=== PATIENT | female | born 1945 | race Caucasian/White ===

== ENCOUNTER 2020-01-09 19:10 | Inpatient (IN) | payer MEDICARE, SELFPAY ==
[2020-01-09] VITALS (7 sets, daily range): BP systolic 122–128; BP diastolic 61–66; PULSE 77–102; RESP 16–30; TEMP 36.9–39.2; O2SAT 91–99
--- NOTE | 2020-01-09 19:38 | DI.RAD.S_ITS ---
PROCEDURE: XR CHEST 1V INDICATIONS: suspected sepsis TECHNIQUE: One view of the chest was acquired. COMPARISON: None. FINDINGS: Surgical changes and devices: Surgical clips in the gallbladder fossa.. Lungs and pleura: Lungs demonstrate mildly coarse interstitial markings diffusely and questionable hazy patchy alveolar opacity in the right lateral lower lung. Possible small retrocardiac alveolar opacity. No dense consolidations. No pleural effusions or pneumothorax. Mediastinum: Mediastinal contours appear normal. Heart size is normal. Bones and chest wall: No suspicious bony lesions. Overlying soft tissues appear unremarkable. IMPRESSION: 1. Interstitial thickening with possible bibasilar alveolar opacities. A viral pneumonia, chronic lung disease, or early interstitial and pulmonary edema should be considered. Correlate clinically. Dictated by: Nicole Zamora M.D. on 01/09/2020 at 20:27 Approved by: Nicole Zamora M.D. on 01/09/2020 at 20:28
--- NOTE | 2020-01-09 19:41 | ED_ITS ---
HPI - General Adult General Chief complaint: Fever Stated complaint: SOB COUGH FEVER Time Seen by Provider: 01/09/20 19:33 Source: patient Mode of arrival: Wheelchair Limitations: no limitations History of Present Illness HPI narrative: Patient is a 74-year-old female. No diagnosed medical problems. States she takes no medications however does use quite a few supplements. 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 She states that she was at the [employer] buildings when several the employees there were diagnosed in tested positive for COVID-19. For the past several days has had cough and body aches. She also states that she has been feeling like she has had hard time catching her breath. No prior underlying lung issues. Also complaining of fevers and body aches. Related Data Home Medications Medication Instructions Recorded Confirmed No Known Home Medications 01/09/20 01/09/20 Allergies Allergy/AdvReac Type Severity Reaction Status Date / Time gabapentin Allergy Unknown Verified 01/09/20 19:25 Review of Systems Constitutional Constitutional: Reports body ache(s), Reports chills, Reports fatigue and Reports fever(s) Cardiovascular Cardiovascular: Denies chest pain and Reports dyspnea Respiratory Respiratory: Reports cough and Reports dyspnea Gastrointestinal Gastrointestinal: Denies abdominal pain, Denies nausea and Denies vomiting Musculoskeletal Musculoskeletal: Denies myalgias and Denies arthralgias Integumentary/Breasts Skin/Breast: Denies lesions and Denies rash Neurologic Neurologic: Denies behavioral changes Psychiatric Psychiatric: Denies behavioral changes Endocrine Endocrine: Reports fatigue Hematologic/Lymphatic Hematologic/Lymphatic: Denies easy bleeding and Denies easy bruising Allergic/Immunologic Allergic/Immunologic: Denies urticaria Patient History Medical History Diet-controlled diabetes mellitus (Acute) Surgical History Hx of cholecystectomy (Acute) Previous back surgery (Acute) Family History (Updated 01/10/20 @ 01:27 by MICHELLE Smith) Mother CVA (cerebral vascular accident) Father Chronic alcoholism Social History household members: none Smoking Status: Former smoker alcohol intake: former Smoking Status: Former smoker alcohol intake frequency: 0-2 drinks per day Substance Use Type: does not use Exam Initial Vital Signs Initial Vital Signs: Vital Signs Temperature 102.5 F H 01/09/20 19:22 Pulse Rate 97 H 01/09/20 19:22 Respiratory Rate 24 01/09/20 19:22 Blood Pressure 128/66 01/09/20 19:22 Pulse Oximetry 91 01/09/20 19:22 Const General: cooperative and comfortable Limitations: mental status not altered HENMT Head: normal to inspection and normocephalic Chest Chest: normal inspection of the chest Resp Effort & Inspection: cough and not labored Auscultation: clear to auscultation bilaterally Cardio Rhythm: regular rhythm Pulses: radial pulses present GI Inspection: non-distended Palpation: soft and No firm Skin Lesions: no lesions Rashes: no rashes Neuro General: alert, awake and oriented x3 Cognition: normal cognition Speech: speech normal Extrem General: capillary refill normal and No edema Psych Appearance: grossly normal and well kempt Scores GCS [place] coma scale eye opening: Spontaneous [place] coma scale verbal response: Orientated Greta coma scale motor response: Obey commands [place] coma scale total score: 15 Course Orders Ordered: ED Orders 01/09/20 19:32 Flu test [Influenza A & B (PCR)] Stat 01/09/20 19:38 XR chest 1V Stat EKG-12 Lead Stat RT Consult Eval and Treat Now 01/09/20 20:30 Blood Culture Stat 01/09/20 20:40 Complete Blood Count AUTO DIFF Stat Comprehensive Metabolic Panel Stat Lactate (Lactic Acid) Stat Lipase Stat NT-proBNP (BNP-Adult 18+) Stat Partial Thromboplastin Time Stat Procalcitonin Stat Prothrombin Time INR Stat 01/09/20 22:41 CT angio chest PE protocol Stat Acetaminophen (Tylenol) 650 mg PO Q4HR COUNTS INCLUDE 234 BEDS AT THE [facility] Last Admin: 01/10/20 02:17 Dose: 650 mg Documented by: AHARSTA Albuterol (Ventolin Hfa) 2 puff INH RTQ4HR PRN PRN Reason: Shortness Of Breath Albuterol/Ipratropium (Combivent Respimat) 2 puff INH RTBID GENESIS Enoxaparin Sodium (Lovenox) 40 mg SUBCUT DAILY COUNTS INCLUDE 234 BEDS AT THE [facility] Sodium Chloride (Normal Saline 0.9%) 1,000 mls @ 100 mls/hr IV CONT GENESIS Last Infusion: 01/10/20 01:40 Dose: 100 mls/hr Documented by: Admin: 01/10/20 00:53 Dose: 100 mls/hr Documented by: NORAH Melatonin (Melatonin) 3 mg PO BEDTIME PRN PRN Reason: Insomnia Last Admin: 01/10/20 02:53 Dose: 3 mg Documented by: SHANNAN Ondansetron HCl (Zofran) 4 mg IV Q8HR PRN PRN Reason: Nausea And Vomiting Discontinued Medications Acetaminophen (Tylenol) 975 mg PO NOW ONE Stop: 01/09/20 19:43 Last Admin: 01/09/20 20:15 Dose: 975 mg Documented by: [email or web address] Sodium Chloride (Normal Saline 0.9%) 1,000 mls @ 1,000 mls/hr IV BOLUS ONE Stop: 01/09/20 20:41 Last Infusion: 01/09/20 22:23 Dose: 0 mls/hr Documented by: [email or web address] Admin: 01/09/20 20:14 Dose: 1,000 mls/hr Documented by: CTR.SARA Vital Signs Vital signs: Vital Signs - 8 hr 01/09/20 19:50 01/09/20 21:30 01/09/20 21:50 Temperature 98.8 F Pulse Rate 102 H 81 77 Respiratory Rate 20 24 30 H Blood Pressure [Left Arm] 122/61 122/61 Pulse Oximetry 97 99 95 01/09/20 22:13 01/09/20 22:50 Temperature 98.4 F 98.4 F Pulse Rate 81 78 Respiratory Rate 24 16 Blood Pressure [Left Arm] 122/61 122/61 Pulse Oximetry 97 96 Medical Decision Making Lab Data Lab results reviewed: Yes I reviewed the patient's lab results. Result diagrams: 01/09/20 20:40 01/09/20 20:40 Labs: Lab Results 01/09/20 01/09/20 01/09/20 Range/Units 19:32 20:40 20:40 WBC 10.6 (4.5-11.0) X10^3/uL RBC 4.67 (4.0-5.2) X10^6/uL Hgb 14.3 (12.0-16.0) g/dL Hct 41.7 (36-46) % MCV 89.3 (80-100) fL MCH 30.6 (26-34) PG MCHC 34.3 (30-36) % RDW 13.2 (11.6-14.8) % Plt Count 214 (150-400) X10^3/uL Neut % (Auto) 74.0 (50-75) % Lymph % (Auto) 19.7 L (25-40) % [place] % (Auto) 6.1 (3-14) % Eos % (Auto) 0.0 L (2-4) % Baso % (Auto) 0.2 (0-2) % Neut # (Auto) 7800 H (2192-1113) /uL Lymph # (Auto) 2100 (3722-6922) /uL [place] # (Auto) 600 (0-900) /uL Eos # (Auto) 0 (0-450) /uL Baso # (Auto) 0 (0-100) /uL PT 14.9 H (10.1-12.7) SECONDS INR 1.3 (0.9-1.3) APTT 34 (26.4-36.2) SECONDS Sodium (137-145) mmol/L Potassium (3.4-5.1) mmol/L Chloride (98-107) mmol/L Carbon Dioxide (22-32) mmol/L BUN (7-17) mg/dL Creatinine (0.52-1.04) mg/dL Estimated GFR (>60) mL/min BUN/Creatinine Ratio (6-22) Glucose (80-110) mg/dL Lactate (0.7-2.1) mmol/L Calcium (8.4-10.2) mg/dL Total Bilirubin (0.2-1.3) mg/dL AST (14-36) IU/L ALT (<35) IU/L Alkaline Phosphatase (38-126) U/L NT-Pro-B Natriuret Pep (<450) pg/mL Total Protein (6.3-8.2) g/dL Albumin (3.5-5.0) g/dL Globulin (1.7-4.1) g/dL Albumin/Globulin Ratio (1.0-2.8) Lipase (23-300) U/L Procalcitonin (<0.5) ng/mL Influenza A (RT-PCR) Flu a negative (NEGATIVE) Influenza B (RT-PCR) Flu b negative (NEGATIVE) 01/09/20 01/09/20 01/09/20 Range/Units 20:40 20:40 20:40 WBC (4.5-11.0) X10^3/uL RBC (4.0-5.2) X10^6/uL Hgb (12.0-16.0) g/dL Hct (36-46) % MCV (80-100) fL MCH (26-34) PG MCHC (30-36) % RDW (11.6-14.8) % Plt Count (150-400) X10^3/uL Neut % (Auto) (50-75) % Lymph % (Auto) (25-40) % [place] % (Auto) (3-14) % Eos % (Auto) (2-4) % Baso % (Auto) (0-2) % Neut # (Auto) (7245-0245) /uL Lymph # (Auto) (5820-4679) /uL [place] # (Auto) (0-900) /uL Eos # (Auto) (0-450) /uL Baso # (Auto) (0-100) /uL PT (10.1-12.7) SECONDS INR (0.9-1.3) APTT (26.4-36.2) SECONDS Sodium 132 L (137-145) mmol/L Potassium 4.3 (3.4-5.1) mmol/L Chloride 101 (98-107) mmol/L Carbon Dioxide 23 (22-32) mmol/L BUN 14 (7-17) mg/dL Creatinine 0.73 (0.52-1.04) mg/dL Estimated GFR > 60.0 (>60) mL/min BUN/Creatinine Ratio 19.2 (6-22) Glucose 109 (80-110) mg/dL Lactate 1.1 (0.7-2.1) mmol/L Calcium 8.9 (8.4-10.2) mg/dL Total Bilirubin 0.6 (0.2-1.3) mg/dL AST 26 (14-36) IU/L ALT 17 (<35) IU/L Alkaline Phosphatase 86 (38-126) U/L NT-Pro-B Natriuret Pep (<450) pg/mL Total Protein 7.5 (6.3-8.2) g/dL Albumin 3.9 (3.5-5.0) g/dL Globulin 3.6 (1.7-4.1) g/dL Albumin/Globulin Ratio 1.1 (1.0-2.8) Lipase 101 (23-300) U/L Procalcitonin 0.11 (<0.5) ng/mL Influenza A (RT-PCR) (NEGATIVE) Influenza B (RT-PCR) (NEGATIVE) 01/09/20 Range/Units 20:40 WBC (4.5-11.0) X10^3/uL RBC (4.0-5.2) X10^6/uL Hgb (12.0-16.0) g/dL Hct (36-46) % MCV (80-100) fL MCH (26-34) PG MCHC (30-36) % RDW (11.6-14.8) % Plt Count (150-400) X10^3/uL Neut % (Auto) (50-75) % Lymph % (Auto) (25-40) % [place] % (Auto) (3-14) % Eos % (Auto) (2-4) % Baso % (Auto) (0-2) % Neut # (Auto) (2601-8190) /uL Lymph # (Auto) (2341-7131) /uL [place] # (Auto) (0-900) /uL Eos # (Auto) (0-450) /uL Baso # (Auto) (0-100) /uL PT (10.1-12.7) SECONDS INR (0.9-1.3) APTT (26.4-36.2) SECONDS Sodium (137-145) mmol/L Potassium (3.4-5.1) mmol/L Chloride (98-107) mmol/L Carbon Dioxide (22-32) mmol/L BUN (7-17) mg/dL Creatinine (0.52-1.04) mg/dL Estimated GFR (>60) mL/min BUN/Creatinine Ratio (6-22) Glucose (80-110) mg/dL Lactate (0.7-2.1) mmol/L Calcium (8.4-10.2) mg/dL Total Bilirubin (0.2-1.3) mg/dL AST (14-36) IU/L ALT (<35) IU/L Alkaline Phosphatase (38-126) U/L NT-Pro-B Natriuret Pep 56 (<450) pg/mL Total Protein (6.3-8.2) g/dL Albumin (3.5-5.0) g/dL Globulin (1.7-4.1) g/dL Albumin/Globulin Ratio (1.0-2.8) Lipase (23-300) U/L Procalcitonin (<0.5) ng/mL Influenza A (RT-PCR) (NEGATIVE) Influenza B (RT-PCR) (NEGATIVE) Imaging Data Chest x-ray: Radiologist's Impression: [address] [address] XRay Report Signed Patient: Erica Lincoln WMR#: [id number] : 4Acct:[id number] Age/Sex: 74 / FDate of Service: 01/09/20 Loc: ED Accession Number: [id number] Procedure: XR chest 1V Ordering Provider: Armando Berrios D.O. PROCEDURE: XR CHEST 1V INDICATIONS: suspected sepsis TECHNIQUE: One view of the chest was acquired. COMPARISON: None. FINDINGS: Surgical changes and devices: Surgical clips in the gallbladder fossa.. Lungs and pleura: Lungs demonstrate mildly coarse interstitial markings diffuse ly and questionable hazy patchy alveolar opacity in the right lateral lower lung. Possible small retrocardiac alveolar opacity. No dense consolidations. No pleural effusions or pneumothorax. Mediastinum: Mediastinal contours appear normal. Heart size is normal. Bones and chest wall: No suspicious bony lesions. Overlying soft tissues appear unremarkable. IMPRESSION: 1. Interstitial thickening with possible bibasilar alveolar opacities. A viral pneumonia, chronic lung disease, or early interstitial and pulmonary edema should be considered. Correlate clinically. Dictated by: Nicole Zamora M.D. on 01/09/2020 at 20:27 Approved by: Nicole Zamora M.D. on 01/09/2020 at 20:28 CT scan - chest: Radiologist's Impression: Bilateral ground-glass opacities MDM Narrative Medical decision making narrative: Fluid negative, labs unremarkable, chest x- ray shows no defined consolidation. CTA of the chest does show bilateral ground-glass up a [place]. Patient is at high risk for COVID-19 given her work environment. Her symptoms are also fairly consistent with this. Patient is not on oxygen at home on a regular basis. Here in the emergency department patient was at 90% on 2 L. When oxygen was turned off even with any minor exertion to include is rolling over in bed her oxygen saturations dropped to the high 80s. This responded quickly when oxygen was turned back on. Feel given her age, her risk of exposure to lopez virus and her need for oxygen admission to the hospital is warranted. Did discuss the case with JESUSITA Galvez the [facility] provider who evaluated the patient in the emergency department. Will admit for further evaluation treatment. Discharge Plan Departure Patient Disposition: Admitted As Inpatient Clinical Impression: Hypoxia Upper respiratory infection Qualifiers: URI type: unspecified viral URI Qualified Code(s): J06.9 - Acute upper respiratory infection, unspecified Fever Qualifiers: Fever type: unspecified Qualified Code(s): R50.9 - Fever, unspecified Discharge Date/Time: 01/10/20 01:45 Admit Date/Time: 01/09/20 22:53 Admit Provider: Nan Galvez
[2020-01-09] MEDS: SODIUM CHLORIDE 0.9% 1,000 ML 1000 ML IV (20:14)
[2020-01-09 20:15] LABS: Influenza A - CEPHEID Flu A NEGATIVE (NEGATIVE); Influenza B - CEPHEID Flu B NEGATIVE (NEGATIVE)
[2020-01-09] MEDS: ACETAMINOPHEN 325 MG TABLET 975 MG PO (20:15)
[2020-01-09 21:03] LABS: Add Manual Diff / Slide Review NO; Basophils Absolute Auto 0 /uL (0-100); Basophils Percent Auto 0.2 % (0-2); Eosinophils Absolute Auto 0 /uL (0-450); Hematocrit 41.7 % (36-46); Hemoglobin 14.3 g/dL (12.0-16.0); Lymphocytes Absolute Auto 2100 /uL (1100-4500); Lymphocytes Percent Auto 19.7 % (25-40); Mean Corpuscular HGB Conc 34.3 % (30-36); Mean Corpuscular Hemoglobin 30.6 PG (26-34); Mean Corpuscular Volume 89.3 fL (80-100); Monocytes Absolute Auto 600 /uL (0-900); Monocytes Percent Auto 6.1 % (3-14); Neutrophils Absolute Auto 7800 /uL (1500-7000); Platelet Count 214 X10^3/uL (150-400); Red Blood Cell Count 4.67 X10^6/uL (4.0-5.2); Red Cell Distribution Width 13.2 % (11.6-14.8); White Blood Cell Count 10.6 X10^3/uL (4.5-11.0)
[2020-01-09 21:09] LABS: INR 1.3 (0.9-1.3); Prothrombin Time 14.9 SECONDS (10.1-12.7)
[2020-01-09 21:12] LABS: PTT Partial Thromboplastin Tim 34 SECONDS (26.4-36.2)
[2020-01-09 21:14] LABS: Lactate (Lactic Acid) 1.1 mmol/L (0.7-2.1)
[2020-01-09 21:26] LABS: NT-proBNP (BNP-Adult 18+) 56 pg/mL (<450)
[2020-01-09 21:32] LABS: Procalcitonin 0.11 ng/mL (<0.5)
[2020-01-09 21:50] LABS: Alanine Aminotransferase 17 IU/L (<35); Albumin 3.9 g/dL (3.5-5.0); Albumin Globulin Ratio 1.1 (1.0-2.8); Alkaline Phosphatase 86 U/L (38-126); Aspartate Aminotransferase 26 IU/L (14-36); BUN Creatinine Ratio 19.2 (6-22); Bilirubin Total 0.6 mg/dL (0.2-1.3); Blood Urea Nitrogen 14 mg/dL (7-17); Calcium 8.9 mg/dL (8.4-10.2); Carbon Dioxide 23 mmol/L (22-32); Chloride 101 mmol/L (98-107); Estimated Glomerular Filt Rate > 60.0 mL/min (>60); Globulin 3.6 g/dL (1.7-4.1); Glucose 109 mg/dL (80-110); HEMOLYSIS < 15 (0-50); Lipase 101 U/L (23-300); Potassium 4.3 mmol/L (3.4-5.1); Sodium 132 mmol/L (137-145); Total Protein 7.5 g/dL (6.3-8.2)
--- NOTE | 2020-01-09 22:26 | PC.NURSE ---
IV fluids infusing.
--- NOTE | 2020-01-09 22:41 | DI.CT.S_ITS ---
PROCEDURE: CT ANGIO CHEST PE PROTOCOL INDICATIONS: Chest pain, shortness of breath, TECHNIQUE: After the administration of intravenous contrast, 2 mm thick sections acquired from the pulmonary apices to the posterior costophrenic angles. 3-dimensional maximum intensity projection (MIP) coronal and sagittal reformats were then acquired through the thorax. For radiation dose reduction, the following was used: automated exposure control, adjustment of mA and/or kV according to patient size. COMPARISON: None. FINDINGS: Image quality: Excellent. Pulmonary arteries: Pulmonary arteries are normal in size, and demonstrate no intraluminal filling defects to suggest central pulmonary embolism. Lungs and pleura: Lungs are abnormal with patchy bilateral alveolar infiltration, involving the upper, middle and lower thirds of the lung parenchyma in a pattern that is nonspecific but could represent atypical/viral pneumonia. No pleural effusions or pneumothorax. Central and peripheral airways are patent. Mediastinum: Heart size is normal, without pericardial effusion. No mediastinal or hilar adenopathy in terms of node size but there are several areas of shotty adenopathy seen in the middle mediastinum and posterior mediastinum. Thoracic aorta is normal in caliber and enhancement. Esophagus is normal in caliber, without hiatal hernia. Bones and chest wall: No suspicious bony lesions. Ribs and thoracic spine appear intact throughout. Thyroid gland appears normal. No axillary or supraclavicular adenopathy. Abdomen: Visualized upper abdominal solid organs appear normal in the early arterial phase of enhancement. IMPRESSION: 1. No pulmonary embolus is found. Next 2. Nonspecific patchy alveolar airspace disease pattern, which could be produced by both bacterial and atypical/viral pneumonia. Consider appropriate testing based on risk factors. Note: These findings are concordant with the preliminary interpretation. Dictated by: Jose Dallas M.D. on 01/10/2020 at 8:35 Approved by: Jose Dallas M.D. on 01/10/2020 at 9:00
--- NOTE | 2020-01-09 23:09 | PC.NURSE ---
Report given to Milka BRUCE.
[2020-01-09 23:52] LABS: Bacteria Urine None Seen; RBC Urine None Seen (0-5/HPF); WBC Urine None Seen (0-5/HPF)
[2020-01-09 23:55] LABS: Appearance Urine UA CLEAR; Bilirubin Urine UA NEGATIVE (NEGATIVE); Color Urine UA YELLOW; Glucose Urine UA NEGATIVE (Negative); Ketones Urine UA TRACE (NEGATIVE); Leukocyte Esterase Urine UA NEGATIVE (NEGATIVE); Nitrite Urine UA NEGATIVE (Negative); Occult Blood Urine UA NEGATIVE (Negative); Protein Urine UA NEGATIVE (Negative); Specific Gravity Urine UA <=1.005 (1.000-1.035); Urobilinogen Urine UA 0.2 E.U./dL (0.2)
[2020-01-10] VITALS (9 sets, daily range): BP systolic 109–133; BP diastolic 56–77; PULSE 66–95; RESP 14–26; TEMP 36.8–38.2; O2SAT 93–97; BMI 29.3
[2020-01-10 00:17] LABS: Culture Indicated Urine Cult Not Indicated; Urine Comments Microscopic Normal
--- NOTE | 2020-01-10 00:24 | PM.HP.1 ---
History of Present Illness History of Present Illness Date Patient Seen: 01/10/20 Time Patient Seen: 12:30 Chief complaint: SOB COUGH FEVER Narrative: Erica Lincoln is a 74-year-old female who presented to the emergency room with fever of 102.6, shortness of breath and slightly productive cough with scant white sputum over the past week. She also endorses having nausea with no appetite for the past week as well as generalized body aches and pains. Denies dysurea, diarrhea or constipation. 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 She is being asked for admission as she is non dependent on oxygen at home. She is desaturating significantly while not currently on oxygen. She is in the mid to high 80s without oxygen and currently at 95% on 2 L. Patient History Medical History Diet-controlled diabetes mellitus (Acute) Surgical History Hx of cholecystectomy (Acute) Previous back surgery (Acute) Family & Social History Family History (Updated 01/10/20 @ 01:27 by MICHELLE Smith) Mother CVA (cerebral vascular accident) Father Chronic alcoholism Safety & Behavioral: Feels Safe in Current Yes Environment Been Physically Hurt or No Threatened By a Person Tobacco & Substance use: Smoking Status Former smoker alcohol intake frequency 0-2 drinks per day Substance Use Type does not use Meds Home Medications and Allergies Home Medications Medication Instructions Recorded Confirmed Type No Known Home Medications 01/09/20 01/09/20 History Allergies Allergy/AdvReac Type Severity Reaction Status Date / Time gabapentin Allergy Unknown Verified 01/09/20 19:25 Review of Systems Review of Systems ROS: Yes All systems reviewed with the patient and are negative except as otherwise documented Exam Vital Signs (past 8 hours): - 01/09/20 19:22 01/09/20 19:50 01/09/20 21:30 Temperature 102.5 F H 98.8 F Pulse Rate 97 H 102 H 81 Respiratory Rate 24 20 24 Blood Pressure 128/66 Blood Pressure [Left Arm] 122/61 Pulse Oximetry 91 97 99 01/09/20 21:50 01/09/20 22:13 01/09/20 22:50 Temperature 98.4 F 98.4 F Pulse Rate 77 81 78 Respiratory Rate 30 H 24 16 Blood Pressure Blood Pressure [Left Arm] 122/61 122/61 122/61 Pulse Oximetry 95 97 96 01/09/20 23:03 Temperature 98.8 F Pulse Rate Respiratory Rate Blood Pressure Blood Pressure [Left Arm] Pulse Oximetry Oxygen Delivery Method Nasal Cannula Oxygen Flow Rate 2 Narrative Exam Narrative: Gen: Alert, oriented, well-developed 74 y.o. female, appears ill and younger than stated age HEENT: normocephalic, atraumatic, conjunctiva clear, sclera non-icteric, oral mucosa pink and moist Neck: supple, full ROM Resp: Lungs sounds diminished, non-labored breathing, oxgenating at 95% on 2L CV: RRR, no murmur or rubs Abd: soft, non-tender, normoactive BTs Skin: no lesions or rashes, dry and intact Neuro: Alert and oriented X 4 w/no focal deficits Extremities: moves all 4 extremities, is ambulatory, negative Jeremy?s sign Psyche: normal mood and affect. Objective Labs Result Diagrams: 01/09/20 20:40 01/09/20 20:40 Labs: Laboratory Results - last 24 hr 01/09/20 01/09/20 01/09/20 19:32 20:40 20:40 WBC 10.6 RBC 4.67 Hgb 14.3 Hct 41.7 MCV 89.3 MCH 30.6 MCHC 34.3 RDW 13.2 Plt Count 214 Neut % (Auto) 74.0 Lymph % (Auto) 19.7 L [place] % (Auto) 6.1 Eos % (Auto) 0.0 L Baso % (Auto) 0.2 Neut # (Auto) 7800 H Lymph # (Auto) 2100 [place] # (Auto) 600 Eos # (Auto) 0 Baso # (Auto) 0 PT 14.9 H INR 1.3 APTT 34 Sodium Potassium Chloride Carbon Dioxide BUN Creatinine Estimated GFR BUN/Creatinine Ratio Glucose Lactate Calcium Total Bilirubin AST ALT Alkaline Phosphatase NT-Pro-B Natriuret Pep Total Protein Albumin Globulin Albumin/Globulin Ratio Lipase Procalcitonin Urine Color Urine Appearance Urine pH Ur Specific [place] Urine Protein Urine Glucose (UA) Urine Ketones Urine Occult Blood Urine Nitrate Urine Bilirubin Urine Urobilinogen Ur Leukocyte Esterase Urine RBC Urine WBC Urine Bacteria Ur Culture Indicated? Micro UA Comment Influenza A (RT-PCR) Flu a negative Influenza B (RT-PCR) Flu b negative 01/09/20 01/09/20 01/09/20 20:40 20:40 20:40 WBC RBC Hgb Hct MCV MCH MCHC RDW Plt Count Neut % (Auto) Lymph % (Auto) [place] % (Auto) Eos % (Auto) Baso % (Auto) Neut # (Auto) Lymph # (Auto) [place] # (Auto) Eos # (Auto) Baso # (Auto) PT INR APTT Sodium 132 L Potassium 4.3 Chloride 101 Carbon Dioxide 23 BUN 14 Creatinine 0.73 Estimated GFR > 60.0 BUN/Creatinine Ratio 19.2 Glucose 109 Lactate 1.1 Calcium 8.9 Total Bilirubin 0.6 AST 26 ALT 17 Alkaline Phosphatase 86 NT-Pro-B Natriuret Pep Total Protein 7.5 Albumin 3.9 Globulin 3.6 Albumin/Globulin Ratio 1.1 Lipase 101 Procalcitonin 0.11 Urine Color Urine Appearance Urine pH Ur Specific [place] Urine Protein Urine Glucose (UA) Urine Ketones Urine Occult Blood Urine Nitrate Urine Bilirubin Urine Urobilinogen Ur Leukocyte Esterase Urine RBC Urine WBC Urine Bacteria Ur Culture Indicated? Micro UA Comment Influenza A (RT-PCR) Influenza B (RT-PCR) 01/09/20 01/09/20 20:40 23:40 WBC RBC Hgb Hct MCV MCH MCHC RDW Plt Count Neut % (Auto) Lymph % (Auto) [place] % (Auto) Eos % (Auto) Baso % (Auto) Neut # (Auto) Lymph # (Auto) [place] # (Auto) Eos # (Auto) Baso # (Auto) PT INR APTT Sodium Potassium Chloride Carbon Dioxide BUN Creatinine Estimated GFR BUN/Creatinine Ratio Glucose Lactate Calcium Total Bilirubin AST ALT Alkaline Phosphatase NT-Pro-B Natriuret Pep 56 Total Protein Albumin Globulin Albumin/Globulin Ratio Lipase Procalcitonin Urine Color Yellow Urine Appearance Clear Urine pH 6.0 Ur Specific [place] <=1.005 Urine Protein Negative Urine Glucose (UA) Negative Urine Ketones Trace H Urine Occult Blood Negative Urine Nitrate Negative Urine Bilirubin Negative Urine Urobilinogen 0.2 Ur Leukocyte Esterase Negative Urine RBC None seen Urine WBC None seen Urine Bacteria None seen Ur Culture Indicated? Cult not indicated Micro UA Comment Microscopic normal Influenza A (RT-PCR) Influenza B (RT-PCR) Assessment & Plan Assessment & Plan narrative: Erica Lincoln will be admitted as an inpatient for further management and evaluation of a strongly suspected COVID-19 viral infection. 1. Suspected COVID-19 viral infection, acute and present on admission - patient has had a 1 week history of cough, fever and flu-like symptoms consistent with probable COVID-19 viral infection - Covid-19 PCR sent by ED - CT of the chest reports ?extensive multifocal bilateral peripheral groundglass of infiltrates and patchy consolidative changes. - Informed Dr. Doherty dog sitter of results and agrees with my recommendation - Due to high suspicion of COVID-19, I have recommended placement into a negative pressure room on droplet and airborne precautions. - Albuterol and duoneb MDI with Respiratory Therapy - If we can minimize the severity of hypoxia, she can be discharged home on quarantine with results to follow. - Daily CBCs, CMP X 1 in the am 2. Diet controlled diabetes - She will have a carb controlled diet FEN: NS at 100 ml/hour, carb controlled diet, chemistries in the am Patient is admitted inpatient as her stay is likely to exceed 2 midnights. VTE Prophylaxis: bilateral scds, enoxaparin 40 mg subQ daily Medications reconciled: NA, she does not take any medications Disposition: unknown at this time Code Status: Full Code
[2020-01-10] MEDS: SODIUM CHLORIDE 0.9% 1,000 ML 100 ML IV (00:53)
[2020-01-10] MEDS: ACETAMINOPHEN 325 MG TABLET 650 MG PO ×4 (02:17→14:10)
[2020-01-10] MEDS: MELATONIN 3 MG TABLET PO (02:53)
[2020-01-10 03:15] LABS: Adenovirus Not Detected (Not Detect); Bordetella pertussis Not Detected (Not Detect); Chlamydophila pneumoniae Not Detected (Not Detect); Coronavirus 229E Not Detected (Not Detect); Coronavirus HKU1 Not Detected (Not Detect); Coronavirus NL 63 Not Detected (Not Detect); Coronavirus OC43 Not Detected (Not Detect); Human Metapneumovirus Not Detected (Not Detect); Human Rhinovirus/Enterovirus Not Detected (Not Detect); Influenza A Not Detected (Not Detect); Influenza B Not Detected (Not Detect); Mycoplasma pneumoniae Not Detected (Not Detect); Parainfluenza Virus 1 Not Detected (Not Detect); Parainfluenza Virus 2 Not Detected (Not Detect); Parainfluenza Virus 3 Not Detected (Not Detect); Parainfluenza Virus 4 Not Detected (Not Detect); Respiratory Syncytial Virus Not Detected (Not Detect)
--- NOTE | 2020-01-10 05:14 | PC.ADMIT ---
[address] [facility] Admission Note: Patient admitted at 0130 to room 219 per stretcher but ambulated from stretcher to bed from outside door with 2 assists; weak. Is alert and oriented. Breath sounds diminished but CTA. On oxygen at 2L/min per NC with sat of 95%. HRR; telemetry was SR. Denies nausea. BT present and abdomen is soft. States she has stress incontinence and is wearing a pad; denies dysuria, frequency or urgency. Advised that activity level is bedrest with BSC and instructed to call for assistance and not to get out of bed without help. Skin is in good condition other than for some redness in abdominal folds. Calf SCD's applied. States generalized pain is 8/10 and medicated with Tylenol. Also given Melatonin for sleep. Is in airborne/contact isolation as presumed positive for coronavirus. Instructed in use of call light and bed controls. The patient,Erica Lincoln,74 y/o, was given written information regarding hospital policies, unit procedures and contact persons. Patient's smoking status: Former smoker. Vital Signs - 8 hr 01/09/20 21:30 01/09/20 21:50 01/09/20 22:13 Temperature 98.8 F 98.4 F Pulse Rate 81 77 81 Respiratory Rate 24 30 H 24 Blood Pressure [Left Arm] 122/61 122/61 122/61 Pulse Oximetry 99 95 97 01/09/20 22:50 01/09/20 23:03 01/10/20 01:04 Temperature 98.4 F 98.8 F Pulse Rate 78 71 Respiratory Rate 16 23 Blood Pressure [Left Arm] 122/61 118/77 Pulse Oximetry 96 95 01/10/20 01:35 Temperature 98.7 F Pulse Rate Respiratory Rate Blood Pressure [Left Arm] Pulse Oximetry
[2020-01-10 06:06] LABS: Add Manual Diff / Slide Review NO; Basophils Absolute Auto 0 /uL (0-100); Basophils Percent Auto 0.2 % (0-2); Eosinophils Absolute Auto 0 /uL (0-450); Eosinophils Percent Auto 0.2 % (2-4); Hematocrit 41.1 % (36-46); Hemoglobin 13.9 g/dL (12.0-16.0); Lymphocytes Absolute Auto 2400 /uL (1100-4500); Lymphocytes Percent Auto 25.4 % (25-40); Mean Corpuscular HGB Conc 33.9 % (30-36); Mean Corpuscular Hemoglobin 30.4 PG (26-34); Mean Corpuscular Volume 89.7 fL (80-100); Monocytes Absolute Auto 600 /uL (0-900); Monocytes Percent Auto 6.5 % (3-14); Neutrophils Absolute Auto 6400 /uL (1500-7000); Neutrophils Percent Auto 67.7 % (50-75); Platelet Count 212 X10^3/uL (150-400); Red Blood Cell Count 4.58 X10^6/uL (4.0-5.2); Red Cell Distribution Width 12.8 % (11.6-14.8); White Blood Cell Count 9.5 X10^3/uL (4.5-11.0)
[2020-01-10 06:13] LABS: Alanine Aminotransferase 16 IU/L (<35); Albumin 3.7 g/dL (3.5-5.0); Albumin Globulin Ratio 1.1 (1.0-2.8); Alkaline Phosphatase 78 U/L (38-126); Aspartate Aminotransferase 24 IU/L (14-36); BUN Creatinine Ratio 15.6 (6-22); Bilirubin Total 0.6 mg/dL (0.2-1.3); Blood Urea Nitrogen 12 mg/dL (7-17); Calcium 8.6 mg/dL (8.4-10.2); Carbon Dioxide 26 mmol/L (22-32); Chloride 104 mmol/L (98-107); Estimated Glomerular Filt Rate > 60.0 mL/min (>60); Globulin 3.4 g/dL (1.7-4.1); Glucose 84 mg/dL (80-110); HEMOLYSIS < 15 (0-50); Potassium 4.3 mmol/L (3.4-5.1); Sodium 136 mmol/L (137-145); Total Protein 7.1 g/dL (6.3-8.2)
[2020-01-10] MEDS: ENOXAPARIN 40 MG/0.4 ML SYRINGE SUBCUT (08:42)
[2020-01-10] MEDS: ALBUTEROL/IPRATROPIUM MDI 2 PUFF INH ×2 (08:51→20:53)
--- NOTE | 2020-01-10 11:04 | PM.CHAP ---
Chart referral. Pt. in isolation so left card but did not enter room. Will attempt phone conversation with Pt but chummer is available for visit if Pt requests. [facility] [phone]
--- NOTE | 2020-01-10 11:46 | PC.NURSE ---
Assess- Patient is A&Ox3. She states that she does have body aches, given tylenol. Afebrile at this point. Up to the commode and voided a good amount. She is a one person assist to use the bsc. Resting comfortably. Airborne precautions in place at this time.
--- NOTE | 2020-01-10 15:18 | CM.DANOTE ---
Addendum entered by Chikis Edwards LPN 01/10/20 15:31: See from ER physician report that pt works at the [employer] 3x week. She is on no home medications. Payer: Medicare Original Note: Discharge Planning/Care Management DCP: assessment: case received, EMR reviewed. Discussed POC with Dr. Arambula in Team Rounds. Pt is a 74 year old female who admitted last night to care of hospitalist team. Admission status: INPT: confirmed by UR JANIS Lucas. Specialized Droplet precautions: noted. Pt is being treated for pneumonia and a rule out Covid-19. Have attempted to reach pt by calling her cell and going through the [employer] system phone on the adice of JANIS [place] but have been unable to contact her thus far. Judit notes she has been on her phone with family members. PCP: note listed on face sheet. 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 Her emergency contact is listed as her sister Ashley Finder: [phone]. Have left a vm for Ashley with introduction of self and role and request for a call back to help our team fill in the details of pt's currently living situation and what she might need at d/c. (Have also left a vm on pt's cell with same introduction.) Dr. Arambula states that he plans to send pt home when her symptoms warrant same and even if rule out Covid 19 is not back so that she can continue to recover in a self quarantine setting. DCP team will continue to follow. CM Discharge Assessment Start: 01/10/20 15:17 Freq: Status: Active Protocol: Document 01/10/20 15:18 ITV (Rec: 01/10/20 15:18 ITV [id number]) Discharge Planning Assessment Advance Directives? No History Provided By Medical Record Prior Living Arrangements RV Household Members none Review Status In Process
--- NOTE | 2020-01-10 17:58 | PC.NURSE ---
Pt resting quietly, Lungs diminished, SpO2 96% Up ad carlos in room to BR. Tele shows NSR per ICU staff. IVF changed to HL as per orders. Call light w/in reach, bed alarm on for pt safety.
[2020-01-10] MEDS: AZITHROMYCIN 500 MG in DEXTROSE 5% IN WATER 250 ML IV (18:08)
[2020-01-10] MEDS: KETOROLAC 15 MG/ML VIAL IV ×2 (18:42→23:55)
[2020-01-10] MEDS: CEFTRIAXONE 1 GM/50 ML FROZ.PIGGY IV (20:13)
[2020-01-11] VITALS (8 sets, daily range): BP systolic 115–126; BP diastolic 61–75; PULSE 64–69; RESP 16–18; TEMP 36.3–37.3; O2SAT 90–95
[2020-01-11] MEDS: MELATONIN 3 MG TABLET PO (00:05)
[2020-01-11] MEDS: ACETAMINOPHEN 325 MG TABLET 650 MG PO ×5 (04:54→21:37)
[2020-01-11 05:23] LABS: Add Manual Diff / Slide Review NO; Basophils Absolute Auto 0 /uL (0-100); Basophils Percent Auto 0.1 % (0-2); Eosinophils Absolute Auto 100 /uL (0-450); Eosinophils Percent Auto 1.3 % (2-4); Hematocrit 39.6 % (36-46); Hemoglobin 13.4 g/dL (12.0-16.0); Lymphocytes Absolute Auto 2500 /uL (1100-4500); Lymphocytes Percent Auto 27.7 % (25-40); Mean Corpuscular HGB Conc 33.8 % (30-36); Mean Corpuscular Hemoglobin 30.3 PG (26-34); Mean Corpuscular Volume 89.5 fL (80-100); Monocytes Absolute Auto 600 /uL (0-900); Monocytes Percent Auto 6.2 % (3-14); Neutrophils Absolute Auto 5900 /uL (1500-7000); Neutrophils Percent Auto 64.7 % (50-75); Platelet Count 219 X10^3/uL (150-400); Red Blood Cell Count 4.43 X10^6/uL (4.0-5.2); White Blood Cell Count 9.1 X10^3/uL (4.5-11.0)
[2020-01-11 05:24] LABS: BUN Creatinine Ratio 16.7 (6-22); Blood Urea Nitrogen 11 mg/dL (7-17); Calcium 8.6 mg/dL (8.4-10.2); Carbon Dioxide 25 mmol/L (22-32); Chloride 108 mmol/L (98-107); Estimated Glomerular Filt Rate > 60.0 mL/min (>60); Glucose 77 mg/dL (80-110); HEMOLYSIS < 15 (0-50); Potassium 4.2 mmol/L (3.4-5.1); Sodium 138 mmol/L (137-145)
[2020-01-11 05:42] LABS: Procalcitonin 0.22 ng/mL (<0.5)
[2020-01-11] MEDS: ENOXAPARIN 40 MG/0.4 ML SYRINGE SUBCUT (08:51)
--- NOTE | 2020-01-11 10:24 | PC.NURSE ---
Assess- Patient is A&Ox3. She states that she has a headache this morning, given tylenol and helpful...Patient ate well at breakfast but states that she did feel a bit nauseous. Patient wants to rest now, we will see about getting her up to void around lunch time. Temp 98.6 with tempadot.
--- NOTE | 2020-01-11 11:20 | PM.PN.1 ---
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 She continues to just feel terrible, achy, tired, poor appetite, headache and dry cough. She has also had slight diarrhea. Her fever does seem to be dissipating however. Exam Vital Signs (past 8 hours): - 01/11/20 03:46 01/11/20 08:00 01/11/20 10:27 Temperature 97.4 F L Pulse Rate 64 66 Respiratory Rate 16 18 Blood Pressure 115/61 124/72 Pulse Oximetry 93 93 94 01/11/20 10:28 Temperature Pulse Rate Respiratory Rate Blood Pressure Pulse Oximetry 94 Oxygen Delivery Method Room Air Oxygen Flow Rate 2 Narrative Exam Narrative: General: Alert fatigued-appearing female with occasional cough Lungs: Clear to auscultation Heart: Regular rhythm Abdomen: Soft, nontender Extremities: No edema Objective Labs Result Diagrams: 01/11/20 04:45 01/11/20 04:45 Labs: Laboratory Results - last 24 hr 01/11/20 01/11/20 01/11/20 04:45 04:45 04:45 WBC 9.1 RBC 4.43 Hgb 13.4 Hct 39.6 MCV 89.5 MCH 30.3 MCHC 33.8 RDW 13.0 Plt Count 219 Neut % (Auto) 64.7 Lymph % (Auto) 27.7 Coleman % (Auto) 6.2 Eos % (Auto) 1.3 L Baso % (Auto) 0.1 Neut # (Auto) 5900 Lymph # (Auto) 2500 Coleman # (Auto) 600 Eos # (Auto) 100 Baso # (Auto) 0 Sodium 138 Potassium 4.2 Chloride 108 H Carbon Dioxide 25 BUN 11 Creatinine 0.66 Estimated GFR > 60.0 BUN/Creatinine Ratio 16.7 Glucose 77 L Calcium 8.6 Procalcitonin 0.22 Assessment & Plan Assessment & Plan narrative: 1. Suspect COVID-19 pneumonia, active -bilateral airspace disease on x-ray and CT, normal WBC, procalcitonin less than 0.5 x 2 -fever seems resolving -CoV-2 PCR sent 01/08 result pending -influenza a and B negative, blood and urine cultures negative -continue Rocephin and Zithromax empirically for possible bacterial pneumonia or super infection until patient discharged or we get back test results 2. Acute hypoxic respiratory failure, active -on admission was desaturating in high 80s on room air -current sat 90% room air, 94% on 2 L -continue supplemental O2 support for comfort 3. Type 2 diabetes, diet-controlled, active -glucose remaining near normal range DVT prophylaxis: Lovenox Patient was stable to improving course but expect prolonged recovery. Possibly can be ready for discharge home tomorrow but will need to self isolate. Quality VTE Deep Vein Thrombosis/Pulmonary Embolism Present on Admission: No
--- NOTE | 2020-01-11 12:01 | CM.DPC ---
DCP Cont: Patient remains in isolation. Discussed briefly in team rounds. Martinez Virus testing is still pending. At this time, patient is being treated for symptoms. 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 P: DCP to continue to follow closely. Home is the plan when results are in, and patient is medically stable. Shiloh Wright RN/[employer]
[2020-01-11] MEDS: AZITHROMYCIN 500 MG in DEXTROSE 5% IN WATER 250 ML IV (17:14)
[2020-01-11] MEDS: CEFTRIAXONE 1 GM/50 ML FROZ.PIGGY IV (21:37)
[2020-01-11] MEDS: SODIUM CHLORIDE 0.9% FLUSH 10 ML IV (21:38)
[2020-01-12] VITALS (9 sets, daily range): BP systolic 132–147; BP diastolic 64–89; PULSE 68–78; RESP 18–20; TEMP 37.1–37.7; O2SAT 89–97
[2020-01-12] MEDS: ACETAMINOPHEN 325 MG TABLET 650 MG PO ×2 (01:16→05:44)
[2020-01-12] MEDS: ENOXAPARIN 40 MG/0.4 ML SYRINGE SUBCUT (08:21)
[2020-01-12] MEDS: SODIUM CHLORIDE 0.9% FLUSH 10 ML IV (08:25)
--- NOTE | 2020-01-12 13:38 | PM.DS.1 ---
History of Present Illness History of Present Illness Date Patient Seen: 01/10/20 Chief complaint: SOB COUGH FEVER Narrative: Written by Nan MARTINEZ: Erica Lincoln is a 74-year-old female who presented to the emergency room with fever of 102.6, shortness of breath and slightly productive cough with scant white sputum over the past week. She also endorses having nausea with no appetite for the past week as well as generalized body aches and pains. Denies dysurea, diarrhea or constipation. 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 She is being asked for admission as she is non dependent on oxygen at home. She is desaturating significantly while not currently on oxygen. She is in the mid to high 80s without oxygen and currently at 95% on 2 L. Discharge Providers Provider Date of admission: 01/09/20 22:53 Discharge Date: 01/12/20 Consults: 01/10/20 02:12 Consult to Pastoral Services Routine Comment: patient request Discharge provider: Christy Stoll DO Summary Hospital Course Discharge Diagnosis: 1. Suspect COVID-19 viral pneumonia, present on admission. Improving. 2. Acute hypoxemic respiratory failure, present on admission. Resolved. 3. Type 2 diabetes, diet-controlled, present on admission. Stable. Hospital Course: Erica Lincoln is a 74-year-old female with a past medical history significant for diabetes mellitus type 2, diet controlled and non-insulin using, who presented to the ED with fever of 102.6, shortness of breath and slightly productive cough with scant white sputum over the past week. 1. Suspect COVID-19 viral pneumonia, present on admission. Improving. -Patient presented with fever, shortness of breath, mildly productive cough, and myalgias. 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 -Chest x-ray demonstrated interstitial thickening with possible bibasilar alveolar opacities. -CTA chest demonstrated nonspecific patchy alveolar airspace disease pattern. -Normal WBC and procalcitonin < 0.5 x 2. -CoV-2 PCR sent 01/09/2020 and pending. Plan to call patient with results once available. -Respiratory PCR negative. -Received empiric ceftriaxone and azithromycin x 3 doses empirically for possible bacterial pneumonia or super infection until patient was discharged then discontinued as the patient has no signs of bacterial infection. -Continued supportive care. 2. Acute hypoxemic respiratory failure, present on admission. Resolved. -On admission the patient was desaturating in high 80s on room air. -Continued supplemental oxygen to keep oxygen saturations 88-92%. Patient currently off oxygen satting in mid 90s. 3. Type 2 diabetes, diet-controlled, present on admission. Stable. -Continued carbohydrate consistent diet. Blood glucoses remained controlled and did not require coverage with low-dose correctional scale insulin. Exam Vital Signs (past 8 hours): - 01/12/20 08:47 01/12/20 08:49 01/12/20 08:58 Temperature 98.8 F Pulse Rate 70 Respiratory Rate 20 Blood Pressure 138/64 Pulse Oximetry 89 L 94 01/12/20 11:23 01/12/20 11:24 Temperature Pulse Rate Respiratory Rate Blood Pressure Pulse Oximetry 94 93 Oxygen Delivery Method Room Air Oxygen Flow Rate 2 Narrative Exam Narrative: General: Older female sitting in bed and in no acute distress, appears acutely ill, well-developed, well-nourished, appropriately interactive. HEENT: Normocephalic, atraumatic. External ears without defect. Pupils equal, round, and reactive to light. Anicteric sclerae, moist conjunctivae, and no lid lag. Oropharynx free of erythema and cobble stoning with moist mucosa. Neck: Supple with full range of motion. No lymphadenopathy or thyromegaly. Cardiovascular: Regular rate and rhythm without murmurs, rubs, or gallops appreciated. Pulmonary: Clear to auscultation bilaterally without crackles, wheezes, or rhonchi. Normal respiratory effort with no use of accessory muscles. Abdomen: Soft, bowel sounds present, nontender, nondistended. No hepatosplenomegaly or masses appreciated. Extremities: No clubbing, cyanosis, or edema. Skin: Normal temperature, turgor, and texture; no rash, ulcers, or subcutaneous nodules appreciated. Neurological: Cranial nerves grossly intact. Psychiatric: Mildly anxious mood and affect. Alert and oriented to person, place, and time. Objective Labs Result Diagrams: 01/11/20 04:45 01/11/20 04:45 Discharge Plan Discharge Plan Patient Disposition: Home Discharge comment: You are being discharged home. You have a viral pneumonia. There is no treatment for viral pneumonia other than supportive. You are currently being tested for lopez virus which is pending and we will call you as soon as it has resulted. You will need to remain in self isolation until you're at least 3 days without fever (without the aid of medication such as Tylenol or Ibuprofen), you have improvement in your respiratory symptoms, and 7 days have elapsed since your symptoms first developed. If you go out into public after this you will need to wear mask at all times until your symptoms have resolved or until 14 days after illness onset. Please try to stay well hydrated get plenty of rest. You may take Tylenol as directed on bottle and as needed for fever and/or muscle aches. Discharge orders & Medications Prescriptions: No Action No Known Home Medications RF: 0 Diet/Activity/Treatments Diet: Diet as Tolerated Activity: Activity as tolerated Visit Report/Discharge Packet Instructions: DI for Dehydration -- Adult, How to Prevent Falls, DI for Viral Syndrome Discharges patient from system. Discharge Date/Time: 01/12/20 17:15 Quality VTE Deep Vein Thrombosis/Pulmonary Embolism Present on Admission: No
--- NOTE | 2020-01-12 14:33 | CM.DPC ---
DCP Cont: Patient is to be discharged home today. She will be in self-isolation. Called patient and spoke to her over the phone, from her room. She confirmed that her family will be able to bring her food and leave it at her door step, and stated that she is supplied with food for now, for son can't come and bring her items until this pm. Discussed with patient having her family bring her some Tylenol. Stated, I usually don't take any medications, but they can get it for me if I need it. Patient discussed her job, and stated that she does plan on going back to work, but she has used up most of her PTO. She verbalized understanding of self-isolation, and is aware that her test results can come in any time. P: Patient is to be discharged home today. Shiloh Wright RN/Ply Bander
[2020-01-12] MEDS: AZITHROMYCIN 500 MG in DEXTROSE 5% IN WATER 250 ML IV (14:40)
--- NOTE | 2020-01-12 15:22 | PC.NURSE ---
Per doctor Stoll's order, patient is to receive her antibiotics prior to discharge home. Infusing now as ordered. Patient waiting for her daughter in law to pick her up this evening and then is to go home and self isolate as instructed. Evening shift RN to review discharge paperwork and home care instructions with patient and her daughter prior to discharge. Patient to notify MD if symptoms return or worsen.
--- NOTE | 2020-01-12 17:32 | PC.NURSE ---
Patient with discharge orders, all education and discharge paperwork given to patient. Patient escorted via wheelchair by this RN, patient did have mask on and I provided one for patients family member that was driving. Patient with all belongings
[2020-01-19 09:23] LABS: COVID19 Sendout Detected (Not Detected)
--- NOTE | 2020-01-19 09:45 | PC.NURSE ---
Notified from Rosibel An that pt POSITIVE for COVID19. Dr Berrios, ED made aware and called pt to notify.
== END 2020-01-12 17:15 | disposition home or self-care (01) | DRG 193 ==
LOC: ED 22:42 → AC 22:54
PROVIDERS: Internal Medicine; Admitting Provider Nurse Practitioner Family; Emergency Provider Emergency Medicine; Referring Provider Emergency Medicine; Visit Provider Nurse Practitioner Family
DX: J12.89 Other viral pneumonia (principal); J96.01 Acute respiratory failure with hypoxia; E11.9 Type 2 diabetes mellitus without complications; B97.29 Other coronavirus as the cause of diseases classified elsewhere
CPT/HCPCS: 36415; 71045; 71275; 80048; 80053; 81001; 82962; 83605; 83690; 83880; 84145; 85025; 85610; 85730; 87040; 87502; 87633; 87635; 87899; 94640; 94760; 94762; 96360; 96361; 99285; J1650; J1885; Q9967